=== PATIENT | male | born 1995 | race Hispanic/Latino ===

== ENCOUNTER 2016-05-01 16:46 | Emergency (ER) | payer OTHER ==
[2016-05-01] MEDS ORDERED: Adacel (T-DAP) 0.5 ML VIAL ONE (17:05)
== END 2016-05-01 17:58 | disposition home or self-care (01) ==
LOC: NAV ERS 16:46
DX: S01.81XA Laceration without foreign body of other part of head, initial encounter (principal); X58.XXXA Exposure to other specified factors, initial encounter
CPT/HCPCS: 12011; 90471; 90715